=== PATIENT | female | born 1985 | race Caucasian/White ===

== ENCOUNTER 2023-03-16 08:29 | Emergency (ER) | payer OTHER, SELFPAY ==
[2023-03-16 08:36] VITALS: BP 184/116
[2023-03-16 08:57] VITALS: BP 161/113
--- NOTE | 2023-03-16 09:38 | ED.MUSCINJ ---
HPI-Injury
General
Chief Complaint: Musculo-Skeletal Complaint
Source: patient
Exam Limitations: none
Time Seen by Provider: 03/16/23 09:31
Travel History
Have you had any contact with someone who has COVID-19?: No
Do you have any symptoms of coronavirus? Fever > 100 degrees, chills, cough, shortness of breath, sore throat, loss of taste or smell, muscle aches, or headache?: No
History of Present Illness-Injury
Initial Injury comments:
37-year-old female [id number] presents complaining of right shoulder pain starting about a month ago but persists. She notes pain along the superior lateral aspect of the shoulder worse with overhead motion and sleeping on it. No numbness
no neck pain. No trauma. She does describe an episode at work reaching above her head to lift a tray and felt pain then. She works as a cook.
Phy Exam
Physical Exam
Physical Exam:
General: Well-appearing female no acute respiratory distress
HEENT: Normocephalic atraumatic
Heart: Regular rate and rhythm no murmurs lungs: Clear to auscultation bilaterally no wheezing
Musculoskeletal exam: Right shoulder tender diffusely. Increased pain with resisted rotator cuff strength testing but good passive motion.
Vascular: 2+ radial pulse right wrist
Injury Course
Orders/Labs/Results
Orders:
Orders
03/16/23 08:39
Shoulder, Right, Trauma [CR Shoulder, Trauma - Right] Urgent
Comment:
Reason For Exam: pain, no injury
MDM/Problems Addressed
Differential Diagnosis Includes:
Right shoulder pain. I personally visualized x-rays of the right shoulder which are negative for acute bony abnormality. Suspect underlying bursitis versus tendinitis. Recommended anti-inflammatories and orthopedic follow-up.
*Critical Care Note
Total Time (30-74mins, 75-104mins- exclusive of procedures): Not Applicable
ED Attending Note
-
Portions of this chart may have been created with voice recognition software.� Occasional wrong word or��sound alike� substitutions may have occurred due to the inherent limitations of voice recognition software.
Discharge Plan
Departure
Patient Disposition: Home (Routine Discharge)
Date of Disposition: 03/16/23
Time of Disposition: 09:40
Patient with high blood pressure during this ER visit?: No
Discharge Problem:
Right shoulder strain
Instructions: Muscle and Bone Pain (DC)
Referrals:
Gibson Mclaughlin MD [Active] -
John Lock MD [Family Provider] -
Activity Restrictions/Additional Instructions:
Continue with ibuprofen as needed for pain. Please follow up with orthopedics for further evaluation. Return if needed otherwise.
Interventions
Interventions:
*Risk Screen - Suicide Last Done: 03/16/23 08:57
*General Assessment Last Done: 03/16/23 08:57
*Neglect/Abuse Screening Last Done: 03/16/23 08:57
ED- Fall Risk Assessment Last Done: 03/16/23 08:59
*ED COVID-19 Vaccine History Last Done: 03/16/23 08:57
ED-Musculoskeletal Assessment Last Done: 03/16/23 08:57
== END 2023-03-16 09:59 | disposition home or self-care (01) ==
LOC: EMR 08:29
PROVIDERS: EMERGENCY PHYSICIAN Emergency Medicine; FAMILY PHYSICIAN Internal Medicine
DX: S46.911A Strain of unspecified muscle, fascia and tendon at shoulder and upper arm level, right arm, initial encounter (principal); X58.XXXA Exposure to other specified factors, initial encounter
CPT/HCPCS: 99283; 73030

== ENCOUNTER 2023-07-23 17:34 | Emergency (ER) | payer OTHER, SELFPAY ==
[2023-07-23 17:35] VITALS: BP 185/127
[2023-07-23] MEDS: DECADRON 10 MG PO (18:18)
[2023-07-23 18:19] VITALS: BP 170/101
--- NOTE | 2023-07-23 18:19 | ED.SKININJ ---
HPI-Injury
General
Chief Complaint: Skin Problem
Source: patient
Exam Limitations: none
Time Seen by Provider: 07/23/23 18:03
Nursing documentation reviewed up to this point in time: agreed with
Travel History
Have you had any contact with someone who has COVID-19?: No
Do you have any symptoms of coronavirus? Fever > 100 degrees, chills, cough, shortness of breath, sore throat, loss of taste or smell, muscle aches, or headache?: No
History of Present Illness-Injury
Is this injury a work related problem?: No
Is pt an associate of [facility]?: No
Initial Injury comments:
Patient to ED with complaint of itchy and burning rash to neck and right side of face. Symptoms started this week on neck and continues to worsen. No fever/chills. Brought self to ED for eval. Known histoy of HTN. BP elevated in ED (173/102).
SHe was recently advised to stop her Losartan by PCP due to developement of cough. She has a follow up appt with PCP to change her medication.
Past History
Past History
ED Past Medical History: HTN
Phy Exam
General Physical Exam
General Presentation: well appearing and no apparent distress
General age: appears stated age
General Skin: warm and dry
General Habitus: normal
General Mental: alert
Pulmonary Exam
Pulmonary Exam: no respiratory distress
Musculoskeletal Exam
Musculoskeletal Exam: full ROM and neuro vasc intact
Skin Exam
Skin Exam: warm/dry and other (red pruritic and burning vesicular rash to neck and face consistent with contact dermatits. )
Psychiatric Exam
Psychiatric Exam: normal mood/affect
Course
Orders/Labs/Results
Orders:
Orders
07/23/23 18:14
Dexamethasone Pf [Decadron] 10 mg PO NOW STA
Vital Signs
Initial and Last Documented VS:
Initial Vital Signs
Temp Pulse Resp BP Pulse Ox
98.1 F 106 20 185/127 100
07/23/23 17:35 07/23/23 17:35 07/23/23 17:35 07/23/23 17:35 07/23/23 17:35
Last Documented Vital Signs
Temp Pulse Resp BP Pulse Ox
98.1 F 106 20 185/127 100
07/23/23 17:35 07/23/23 17:35 07/23/23 17:35 07/23/23 17:35 07/23/23 17:35
*Critical Care Note
Total Time (30-74mins, 75-104mins- exclusive of procedures): Not Applicable
ED Attending Note
-
Portions of this chart may have been created with voice recognition software.� Occasional wrong word or��sound alike� substitutions may have occurred due to the inherent limitations of voice recognition software.
Discharge Plan
Departure
Patient Disposition: Home (Routine Discharge)
Date of Disposition: 07/23/23
Time of Disposition: 18:15
Patient with high blood pressure during this ER visit?: No
Condition: Good
Covid-19: Not Applicable
Discharge Problem:
Contact dermatitis
Instructions: Contact dermatitis, BLOOD PRESSURE
Prescriptions:
New
prednisone 10 mg Tablet
See Rx Instructions .ROUTE .COMPLEX Qty: 30 0RF
Rx Instructions:
Take By Mouth:
40 mg daily x3 days, 30 mg daily x3 days,
20 mg daily x3 days, 10 mg daily x3 days.
Referrals:
John Lock MD [Family Provider] - Follow up in 2-3 days
Stand Alone Forms: Return to Work
Interventions
Interventions:
*Risk Screen - Suicide Last Done: 07/23/23 18:20
*General Assessment Last Done: 07/23/23 18:20
*Neglect/Abuse Screening Last Done: 07/23/23 18:20
*ED COVID-19 Vaccine History Last Done: 07/23/23 17:35
Discharge Date and Time
Print Language: TONGAN
== END 2023-07-23 18:25 | disposition home or self-care (01) ==
LOC: EMR 17:34
PROVIDERS: EMERGENCY PHYSICIAN Emergency Medicine; FAMILY PHYSICIAN Internal Medicine
DX: L25.9 Unspecified contact dermatitis, unspecified cause (principal); I10 Essential (primary) hypertension
CPT/HCPCS: 99283